=== PATIENT | male | born 1995 | race Two or more races ===

== ENCOUNTER 2018-11-22 11:57 | Emergency (ER) | payer SELFPAY ==
[~2018-11-22] VITALS: Ht 172.7 cm; Wt 61.2 kg
[2018-11-22 12:07] VITALS: BP 120/73; Ht 172.7 cm; Wt 61.2 kg
== END 2018-11-22 13:48 | disposition home or self-care (01) ==
LOC: ED 11:57
DX: J36 Peritonsillar abscess (principal)